=== PATIENT | female | born 2000 | race Caucasian/White ===

== ENCOUNTER 2024-04-02 00:55 | Inpatient (IN) | payer OTHER ==
[2024-04-02 01:19] VITALS: BMI 32.4
[2024-04-02] MEDS ORDERED: fentaNYL 50 mcg/mL 1 mL Vial SLOW IVP PRN (01:51)
[2024-04-02] MEDS ORDERED: Butorphanol Tartrate 1 MG/ML VIAL SLOW IVP PRN (01:51)
[2024-04-02] MEDS ORDERED: Docusate 100 MG CAP PO PRN (01:51)
[2024-04-02] MEDS ORDERED: Lidocaine 1% (PF) 30 ML VIAL SC PRN (01:51)
[2024-04-02] MEDS ORDERED: Carboprost 250 MCG/ML AMP IM PRN (01:51)
[2024-04-02] MEDS ORDERED: Diphenoxylate HCl/Atropine Tablet PO PRN (01:51)
[2024-04-02] MEDS ORDERED: Methylergonovine 0.2 MG/ML VIAL IM PRN (01:51)
[2024-04-02] MEDS ORDERED: Misoprostol 200 MCG TAB PR PRN (01:51)
[2024-04-02] MEDS ORDERED: Ondansetron PF 4 MG/2 ML Vial IVP PRN ×3 (01:51→22:41)
[2024-04-02] MEDS ORDERED: Tranexamic Acid 1,000 MG/10 ML VIAL IVP PRN (01:51)
[2024-04-02] MEDS ORDERED: hydrALAZINE 20 MG/ML VIAL SLOW IVP PRN ×2 (01:51→22:41)
[2024-04-02] MEDS ORDERED: Acetaminophen 500 MG TAB PO PRN (01:51)
[2024-04-02] MEDS ORDERED: Promethazine HCl 25 MG/ML VIAL IM PRN ×3 (01:51→22:41)
[2024-04-02] MEDS ORDERED: Oxytocin 30 units/NS 500 ML 500 ML IV SCH ×2 (02:00)
[2024-04-02] MEDS: Lactated Ringer's 1,000 ML IV SCH (02:36)
[2024-04-02] MEDS: Oxytocin 30 units/NS 500 ML 500 ML IV SCH (02:57)
[2024-04-02 03:04] LABS: Hematocrit 32.2 % (34.9-44.5); Hemoglobin 10.9 g/dL (12.0-15.5); Mean Corpuscular HGB CONC 33.9 g/dL (32.0-36.0); Mean Corpuscular Hemoglobin 28.9 pg (27.0-33.0); Mean Corpuscular Volume 85.4 fL (81.6-98.3); Platelet Count 276 10x3/uL (150-450); RBC Distribution Width 13.2 % (11.5-14.5); Red Blood Cell (RBC) Count 3.77 10x6/uL (3.90-5.03); White Blood Cell (WBC) Count 12.7 10x3/uL (3.5-10.5)
[2024-04-02 03:36] LABS: HBsAg Index 0.21 S/CO (0-0.99); Hep B Surf Ag - L&D Non-Reactive S/CO (NonReactive)
[2024-04-02 03:37] LABS: Syphilis Antibody Nonreactive (Nonreactive); Syphilis Antibody Index 0.07 S/CO (<1.00 Non-Reactive)
[2024-04-02] MEDS ORDERED: diphenhydrAMINE 50 MG/ML VIAL IVP PRN (07:51)
[2024-04-02] MEDS ORDERED: Naloxone HCl 0.4 mg/ml Vial IVP PRN ×2 (07:51)
[2024-04-02] MEDS ORDERED: Lactated Ringer's 500 ML IV PRN (07:51)
[2024-04-02] MEDS ORDERED: Acetaminophen 325 MG TAB PO PRN (07:51)
[2024-04-02] MEDS ORDERED: Moisturizing Cream (Eucerin) 113 GM JAR TOP PRN (07:51)
[2024-04-02] MEDS ORDERED: ePHEDrine Sulfate 50 MG/10 ML VIAL SLOW IVP PRN (07:51)
[2024-04-02] MEDS ORDERED: Communication Order-Pharmacy FS SCH (08:00)
[2024-04-02] MEDS ORDERED: fentaNYL 2 mcg/Ropivacaine 0.2% Epidural 100 ML CADD EPIDURAL SCH (08:00)
[2024-04-02] MEDS: fentaNYL/Ropivacaine Epidural 100 ML ONE (18:16)
[2024-04-02] MEDS: Ibuprofen 800 MG TAB PO PRN (20:37)
[2024-04-02] MEDS ORDERED: Milk Of Magnesia 30 ML UDCUP PO PRN (22:41)
[2024-04-02] MEDS ORDERED: HYDROcodone/Acetaminophen 5/325 mg Tablet PO PRN (22:41)
[2024-04-02] MEDS ORDERED: Benzocaine-Menthol 82.5 ML CAN TOP PRN (22:41)
[2024-04-02] MEDS ORDERED: Lanolin Ointment 7 GM TUBE TOP PRN (22:41)
[2024-04-02] MEDS ORDERED: Bisacodyl 10 MG SUPP PR PRN (22:41)
[2024-04-02] MEDS ORDERED: Preparation H Ointment 28 GM TUBE PR PRN (22:41)
[2024-04-02] MEDS ORDERED: diphenhydrAMINE 25 MG CAP PO PRN (22:41)
[2024-04-03] MEDS: Ibuprofen 800 MG TAB PO SCH (05:28)
[2024-04-03] MEDS: fentaNYL/Ropivacaine Epidural 100 ML ONE (07:39)
[2024-04-03] MEDS: Boostrix 0.5 ML (Tdap) VIAL (>/=7 yrs of age) IM ONE (07:40)
[2024-04-03] MEDS: Ferrous Sulfate 325 MG TAB PO SCH (07:45)
[2024-04-03] MEDS: Docusate 100 MG CAP PO SCH (08:21)
[2024-04-03] MEDS: Prenatal Vitamin 1 TAB PO SCH (08:21)
[2024-04-03] MEDS ORDERED: Bupivacaine 0.25% HCL 30 ML VIAL ONE (09:00)
[2024-04-03] MEDS ORDERED: Bupivacaine HCl 0.5%/Epinephrine 1:200,000/PF 30 ml Vial ONE (09:00)
[2024-04-04 07:38] VITALS: BP 106/60; TEMP 98
== END 2024-04-04 14:20 | disposition home or self-care (01) | DRG 807 ==
LOC: CSHLD/OP 00:55 → CSHLD 01:52 → CSHPP 22:00
PROVIDERS: ADMIT Student in an Organized Health Care Education/Training Program; ATTEND Student in an Organized Health Care Education/Training Program
PROC: 10E0XZZ Delivery of Products of Conception, External Approach (ICD-10-PCS; principal; 2024-04-02)
PROC: 0HQ9XZZ Repair Perineum Skin, External Approach (ICD-10-PCS; 2024-04-02)
DX: O42.02 Full-term premature rupture of membranes, onset of labor within 24 hours of rupture (principal); Z37.0 Single live birth; Z3A.37 37 weeks gestation of pregnancy; O36.5930 Maternal care for other known or suspected poor fetal growth, third trimester, not applicable or unspecified; O69.89X0 Labor and delivery complicated by other cord complications, not applicable or unspecified; O70.0 First degree perineal laceration during delivery
CPT/HCPCS: 36415; 51702; 85027; 86780; 86850; 86900; 86901; 87340; 88307; 99285; J0665; J2590; J7120